=== PATIENT | male | born 2000 | race African-American/Black ===

== ENCOUNTER 2022-04-13 11:36 | Emergency (ER) | payer OTHER ==
[~2022-04-13] VITALS: Ht 188 cm; Wt 105.5 kg
[2022-04-13 13:13] VITALS: BP 117/61
== END 2022-04-13 13:14 | disposition home or self-care (01) ==
LOC: M ED 11:36
DX: S80.02XA Contusion of left knee, initial encounter (principal); W22.8XXA Striking against or struck by other objects, initial encounter; Y92.009 Unspecified place in unspecified non-institutional (private) residence as the place of occurrence of the external cause

== ENCOUNTER 2022-08-13 00:39 | Emergency (ER) | payer OTHER ==
[~2022-08-13] VITALS: Ht 188 cm; Wt 110.3 kg
[2022-08-13 00:44] VITALS: BP 132/73
== END 2022-08-13 02:27 | disposition left against medical advice (07) ==
LOC: EDBD 00:39 → M ED 00:39 → EDSEX 00:39 → M ED 02:27
DX: Z53.21 Procedure and treatment not carried out due to patient leaving prior to being seen by health care provider (principal)